=== PATIENT | female | born 2005 | race Hispanic/Latino ===

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

== ENCOUNTER 2025-01-24 13:36 | Emergency (ER) | payer SELFPAY ==
[2025-01-24] MEDS ORDERED: Lidocaine 1% w/Epinephrine 1:100K 20 ML VIAL ONE (13:55)
[2025-01-24] MEDS ORDERED: Boostrix 0.5 ML (Tdap) VIAL (>/=7 yrs of age) ONE (13:59)
== END 2025-01-24 14:15 | disposition home or self-care (01) ==
LOC: NAV ERS 13:36
DX: S01.01XA Laceration without foreign body of scalp, initial encounter (principal); F17.290 Nicotine dependence, other tobacco product, uncomplicated; Z23 Encounter for immunization; W20.0XXA Struck by falling object in cave-in, initial encounter
CPT/HCPCS: 12001; 90471; 90715

== ENCOUNTER 2025-02-03 14:59 | Emergency (ER) | payer SELFPAY | END 2025-02-03 15:20 | disposition home or self-care (01) | LOC: NAV ERS 14:59 | DX: S01.01XD Laceration without foreign body of scalp, subsequent encounter (principal); Z48.02 Encounter for removal of sutures; F17.290 Nicotine dependence, other tobacco product, uncomplicated; W26.8XXD Contact with other sharp object(s), not elsewhere classified, subsequent encounter ==